=== PATIENT | male | born 1975 | race Caucasian/White ===

== ENCOUNTER 2020-06-03 16:38 | Emergency (ER) | payer MEDICARE, OTHER ==
[~2020-06-03] VITALS: Ht 172.7 cm; Wt 52.0 kg
[2020-06-03] MEDS ORDERED: ACETAMINOPHEN 325 MG TABLET PO ONE (17:15)
[2020-06-03] MEDS ORDERED: IV NORMAL SALINE 1,000ML 1,000 ML IV ONE (17:15)
--- NOTE | 2020-06-03 17:28 | RAD ---
EXAM: CHEST ONE VIEW. HISTORY: Fever. COMPARISON: None. FINDINGS: A frontal view of the chest is obtained. There are no confluent infiltrates. There is no pneumothorax or pleural effusion. The heart is not enlarged. There is a chronic healed fracture of the right mid clavicle. IMPRESSION: 1. No confluent infiltrates. Electronically signed by: Ree Mckay MD (06/03/2020 5:25 PM) [id number]
--- NOTE | 2020-06-03 17:50 | PHYS DOC ---
Past History Past Medical History: Constipation, GERD, High Cholesterol, Seizure, Other Additional Past Medical Histor: cerebral palsy, edema, overactive bladder, blindness Past Surgical History: Other Additional Past Surgical Histo: foot surgeries Alcohol Use: None General Adult EDM: Chief Complaint: FEVER HPI: HPI: Patient is a 44-year-old AA male, accompanied by his caregiver, who presents to the emergency room with complaints of a fever and decreased appetite since yesterday. Patient's primary care doctor called prior to patient arrival and reported patient was tachycardic in their office. Caregiver that is with the patient reports that the patient has not had any Tylenol or ibuprofen since last night. Patient denies any complaints of abdominal pain, cough, shortness of breath, dysuria, body aches, fatigue, nausea, vomiting, diarrhea, or headache. He denies any pain at this time. Review of Systems: Review of Systems: Constitutional: Denies fever or chills Eyes: Denies change in visual acuity HENT: Denies nasal congestion or sore throat Respiratory: Denies cough or shortness of breath Cardiovascular: Denies chest pain or edema GI: Denies abdominal pain, nausea, vomiting, bloody stools or diarrhea : Denies dysuria Musculoskeletal: Denies back pain or joint pain Integument: Denies rash Neurologic: Denies headache, focal weakness or sensory changes Endocrine: Denies polyuria or polydipsia Lymphatic: Denies swollen glands Psychiatric: Denies depression or anxiety Current Medications: Current Meds: Current Medications Medications (Trade) Dose Ordered [facility] Start Time Stop Time Status Last Admin Dose Admin Acetaminophen (Tylenol) 1,000 mg 1X ONCE 06/03/20 17:15 06/03/20 17:16 UNV Sodium Chloride 1,000 ml @ 1,000 mls/hr 1X ONCE 06/03/20 17:15 06/03/20 18:14 UNV Physical Exam: PE: Constitutional: Well developed, well nourished, no acute distress, non-toxic appearance. [] HENT: Normocephalic, atraumatic, bilateral external ears normal, nose normal. [] Eyes: Blind, no discharge. [] Neck: Normal range of motion, no stridor. [] Cardiovascular:Heart rate regular tachycardic rhythm, no murmur Lungs & Thorax: Respirations even and unlabored, no retractions, no respiratory distress, clear in upper lobes, diminished in lower lobes bilaterally Abdomen: soft, no tenderness Skin: Hot, dry, no erythema, no rash. [] Extremities: No cyanosis, no edema. [] Neurologic: Alert and oriented X 3, no focal deficits noted. [] Psychologic: Affect normal, judgement normal, mood normal. [] Current Patient Data: Vital Signs: Vital Signs Date Time Temp Pulse Resp B/P (MAP) Pulse Ox O2 Delivery O2 Flow Rate FiO2 06/03/20 17:00 100.7 138 22 138/95 (109) 96 Room Air EKG: EKG: [] Radiology/Procedures: Radiology/Procedures: PROCEDURE: CHEST AP ONLY EXAM: CHEST ONE VIEW. HISTORY: Fever. COMPARISON: None. FINDINGS: A frontal view of the chest is obtained. There are no confluent infiltrates. There is no pneumothorax or pleural effusion. The heart is not enlarged. There is a chronic healed fracture of the right mid clavicle. IMPRESSION: 1. No confluent infiltrates. [] Heart Score: Risk Factors: Risk Factors: DM, Current or recent (<one month) smoker, HTN, HLP, family history of CAD, obesity. Risk Scores: Score 0 - 3: 2.5% MACE over next 6 weeks - Discharge Home Score 4 - 6: 20.3% MACE over next 6 weeks - Admit for Clinical Observation Score 7 - 10: 72.7% MACE over next 6 weeks - Early Invasive Strategies Course & Med Decision Making: Course & Med Decision Making Pertinent Labs and Imaging studies reviewed. (See chart for details) [] Dragon Disclaimer: Dragon Disclaimer: This electronic medical record was generated, in whole or in part, using a voice recognition dictation system. Departure Departure: Impression: Primary Impression: Person under investigation for COVID-19 Additional Impressions: UTI (urinary tract infection) Qualified Codes: N39.0 - Urinary tract infection, site not specified Fever Qualified Codes: R50.9 - Fever, unspecified Disposition: 01 DC HOME SELF CARE/HOMELESS Condition: STABLE Referrals: CATHERINE HURTADO MD (PCP) Patient Instructions: Fever, Adult, [id number], Urinary Tract Infection, [id number] Additional Instructions: Fill prescription(s) and use as directed. Alternate Tylenol and ibuprofen as needed for fever. Avoid bladder irritants such as caffeine, carbonation, and spicy foods. Increase clear fluids. Follow up with your primary care doctor if symptoms persist, return to the ER if symptoms worsen. You have been tested for or diagnosed with COVID-19. It is an infection caused by a new type of coronavirus. COVID-19 will cause cold-like or mild flu symptoms in most. It can cause more severe symptoms like problems breathing in some. There is no treatment for COVID-19. The body will clear the infection over time. Self-care will help to ease discomfort. Steps to Take: Self-Care Rest as needed. Healthy habits may help you feel better. Steps include: Choose healthy foods including fruits and vegetables. Drink water throughout the day. Get plenty of sleep each night. If you smoke, try to quit. It may ease breathing. Avoid alcohol. Keep Others Healthy The virus can spread to others. Droplets are released every time you sneeze or cough. The droplets can get into the mouth, nose, or eyes of people near you and lead to infection. To lower the chances of spreading COVID-19 to others: Stay at home until your doctor has said it is safe to leave. If you tested positive this will mean staying isolated until both of the following are true: At least 7 days have passed since the start of illness. You are free of fever for at least 72 hours without the use of medicine. During this time: - Avoid public areas, events, or transportation. Do not return to work or school until your doctor has said it is safe to do so. - Call ahead if you need to go to a medical center. Let them know you may have COVID-19. It will help them guide you where to go. They may also ask you to wear a facemask when you come to the office. - If you call for emergency medical services, let them know you may have COVID- 19. While at home: - Try to avoid close contact with others. Stay about 6 feet away. - If possible, spend most of your time in a separate room from others. - Use a face mask if you will be in close contact with others such as sharing a room or vehicle. - Have someone wipe down common surfaces in the home. Use household oil well fishing tool operator every day on areas like doorknobs, counters, or sinks. - Cough or sneeze into a tissue. Throw the tissue away right after use. If a tissue is not available, cough or sneeze into your elbow. - Wash your hands often. Wash them after sneezing or coughing. Use soap and water and wash for at least 20 seconds. Alcohol based hand power cleaner operator can be used if soap and water is not available. - Do not prepare food for others. Avoid sharing personal items like forks, spoons, or toothbrushes. - Avoid close contact with pets while you are sick. There is no evidence of the virus passing to pets. This is a safety step until more is known about this virus. Isolation can be frustrating. Social interaction can help. Keep in touch with friends and family through phone and tech options. You can still interact with others in your home, just keep a safe distance of about 6 feet. Follow-up: Your doctors office will check in with you to see if there are any changes in your health. You may be asked to keep track of symptoms to share with them. They will also let you know when you are clear to be in public again. Problems to Look Out For: Contact your doctor if your recovery is not going as you expect. Get emergency care if you have problems such as: - Trouble breathing - Nonstop chest pain or pressure - Changes in awareness, confusion, or problems waking - Lips or face have bluish color - Worsening of symptoms If you think you have an emergency, call for emergency medical services right away. As taken from [facility] Scripts Ciprofloxacin Hcl (CIPRO) 500 Mg Tablet 500 MG PO BID for uti for 3 Days, #6 TAB 0 Refills Prov: THANIA JOY APRN 06/03/20 THANIA JOY APRN Jun 03, 2020 17:49
[2020-06-03 18:44] LABS: BASO # 0.1 x10^3/uL (0.0-0.2); BASO % 0 % (0-3); EOS % 0 % (0-3); HEMATOCRIT 44.7 % (39.0-53.0); HEMOGLOBIN 14.5 g/dL (13.0-17.5); LYMPH # 1.2 x10^3/uL (1.0-4.8); LYMPH % 7 % (24-48); MEAN CORPUSCULAR HEMOGLOBIN 27 pg (25-35); MEAN CORPUSCULAR HGB CONC 33 g/dL (31-37); MEAN CORPUSCULAR VOLUME 82 fL (79-100); MONO # 2.1 x10^3/uL (0.0-1.1); MONO % 12 % (0-9); NEUT # 14.6 x10^3uL (1.8-7.7); NEUT % 81 % (31-73); PLATELET COUNT 186 x10^3/uL (140-400); RED BLOOD COUNT 5.48 x10^6/uL (4.30-5.70); RED CELL DISTRIBUTION WIDTH 14.3 % (11.5-14.5)
[2020-06-03 18:45] LABS: CALCIUM 9.1 mg/dL (8.5-10.1); CREATININE 1.1 mg/dL (0.7-1.3); GFR 72.7; POTASSIUM 3.9 mmol/L (3.5-5.1)
[2020-06-03 18:51] LABS: ALBUMIN 3.6 g/dL (3.4-5.0); ALBUMIN/GLOBULIN RATIO 0.8 (1.0-1.7); TOTAL PROTEIN 8.2 g/dL (6.4-8.2)
[2020-06-03] MEDS ORDERED: ACETAMINOPHEN 500 MG TABLET PO ONE (19:00)
[2020-06-03 19:09] LABS: % BANDS 5 % (0-9); % LYMPHS 9 % (24-48); % MONOS 8 % (0-10); % SEGS 78 % (35-66)
[2020-06-03 19:10] LABS: PLT ESTIMATE ADEQUATE (ADEQUATE)
[2020-06-03 20:02] LABS: BILIRUBIN,URINE NEG (NEG); CLARITY,URINE CLEAR; COLOR,URINE STRAW; GLUCOSE,URINE NEG (NEG)
[2020-06-03 20:03] LABS: NITRITE,URINE NEG (NEG); UROBILINOGEN,URINE 0.2 mg/dL (0.2 mg/dL)
[2020-06-03 20:14] LABS: BACTERIA,URINE MOD /HPF (0-FEW); SQUAMOUS EPITHELIAL CELL,UR FEW /LPF
[2020-06-03] MEDS ORDERED: CIPR500T94 PO (20:26)
[2020-06-03] MEDS ORDERED: cefTRIAXone SODIUM 1 GM VIAL ONE (20:31)
[2020-06-03] MEDS ORDERED: IV NORMAL SALINE 50ML 50 ML ONE (20:31)
[2020-06-03] MEDS ORDERED: IBUPROFEN 600 MG TABLET. PO ONE (20:45)
[2020-06-03 21:17] VITALS: BP 135/92
== END 2020-06-03 21:17 | disposition home or self-care (01) ==
LOC: ER 16:38
DX: N39.0 Urinary tract infection, site not specified (principal); R50.9 Fever, unspecified; R00.0 Tachycardia, unspecified; Z20.828 Contact with and (suspected) exposure to other viral communicable diseases; K21.9 Gastro-esophageal reflux disease without esophagitis; E78.00 Pure hypercholesterolemia, unspecified
CPT/HCPCS: 36415; 71045; 80053; 81001; 83605; 83735; 85007; 85025; 87040; 87077; 87086; 96361; 96365; 99285; J0696; J7030; U0003

== ENCOUNTER 2020-11-04 20:03 | Emergency (ER) | payer MEDICARE, OTHER ==
[~2020-11-04] VITALS: Ht 172.7 cm; Wt 65.0 kg
[~2020-11-04 20:03] MED LIST: CIPR500T94 PO
--- NOTE | 2020-11-04 20:35 | PHYS DOC ---
Past History Past Medical History: Constipation, GERD, High Cholesterol, Seizure, Other Additional Past Medical Histor: cerebral palsy, edema, overactive bladder, blindness Past Surgical History: Other Additional Past Surgical Histo: foot surgeries Alcohol Use: None General Adult EDM: Chief Complaint: FEVER HPI: HPI: Patient is a 45-year-old male brought in from nursing facility by caregiver for temperature of 100.2 and left-sided flank pain. He has a history of tract infections but denies any history of kidney infections. Denies any cough, vomiting, diarrhea. Patient has had decreased and darker urine today. States he has been eating and drinking well. Denies any abdominal pain. Has not had any antipyretic medications today. No known sick contacts. Patient states he flank pain is dull and started last night when he was trying to go to bed. Review of Systems: Review of Systems: All other systems within normal limits except for as noted in the HPI Current Medications: Current Meds: Current Medications Medications (Trade) Dose Ordered Sig/Rhea Start Time Stop Time Status Last Admin Dose Admin Fentanyl Citrate (Fentanyl 2ml Vial) 50 mcg 1X ONCE 11/04/20 20:45 11/04/20 20:46 UNV Sodium Chloride 1,000 ml @ 1,000 mls/hr 1X ONCE 11/04/20 20:45 11/04/20 21:44 UNV Allergies: Allergies: Allergies Coded Allergies Type Severity Reaction Last Updated Verified No Known Drug Allergies 06/03/20 No Physical Exam: PE: Constitutional: Well developed, well nourished, no acute distress, non-toxic appearance. [] HENT: Normocephalic, atraumatic, bilateral external ears normal, nose normal. [] Eyes: PERRLA, conjunctiva normal, no discharge. [] Neck: No rigidity, supple, no stridor. [] Cardiovascular: Regular rate and rhythm, brisk cap refill [] Lungs & Thorax: Non labored symmetric respirations, no tachypnea or respiratory distress [] Abdomen: Soft, nondistended. Skin: Warm, dry, no erythema, no rash. [] Back: Unremarkable, bilateral CVA tenderness Extremities: No deformities, range of motion grossly intact, no lower extremity edema [] Neurologic: Alert and oriented X 3, no focal deficits noted. Moving all extremities, generalized muscle spasms secondary cerebral palsy. [] Psychologic: Affect normal, judgement normal, mood normal. [] EKG: EKG: [] Radiology/Procedures: Radiology/Procedures: Single view chest dated 11/04/2020: No comparison available. Clinical Indication: Fever. Findings: Single upright portable exam of the chest was performed. Heart size and mediastinal contours are within normal limits given technique. The lungs are clear without evidence of focal consolidation. Vascular interstitium is within normal limits. Impression:: No acute radiographic abnormality. [] Heart Score: C/O Chest Pain: No Risk Factors: Risk Factors: DM, Current or recent (<one month) smoker, HTN, HLP, family history of CAD, obesity. Risk Scores: Score 0 - 3: 2.5% MACE over next 6 weeks - Discharge Home Score 4 - 6: 20.3% MACE over next 6 weeks - Admit for Clinical Observation Score 7 - 10: 72.7% MACE over next 6 weeks - Early Invasive Strategies Course & Med Decision Making: Course & Med Decision Making Pertinent Labs and Imaging studies reviewed. (See chart for details) Per chart review patient has a history of persistent tachycardia. Given fluids antibiotics in the emergency department. Will send home with pyelonephritis. Lactic acid and stable blood pressure, low-grade fever. We will discussed return precautions and treat as outpatient. [] Dragon Disclaimer: Dragon Disclaimer: This electronic medical record was generated, in whole or in part, using a voice recognition dictation system. Departure Departure: Impression: Primary Impression: Pyelonephritis Disposition: 01 DC HOME SELF CARE/HOMELESS Condition: STABLE Referrals: CATHERINE HURTADO MD (PCP) Patient Instructions: Pyelonephritis, Adult Additional Instructions: Return to emergency department for uncontrollable pain, fevers, or vomiting. Follow-up with your primary care provider after quest antibiotics to ensure resolution of urinary tract infection Scripts Cefpodoxime Proxetil (CEFPODOXIME PROXETIL) 200 Mg Tablet 1 TAB PO BID for antibiotic for 10 Days, #20 TAB Prov: CARLTON JACOME MD 11/04/20 CARLTON JACOME MD Nov 04, 2020 20:35
[2020-11-04] MEDS ORDERED: IV NORMAL SALINE 1,000ML 1,000 ML IV ONE ×2 (20:45→22:00)
[2020-11-04 21:09] LABS: BASO # 0.1 x10^3/uL (0.0-0.2); BASO % 0 % (0-3); EOS % 0 % (0-3); HEMOGLOBIN 14.3 g/dL (13.0-17.5); LYMPH # 1.7 x10^3/uL (1.0-4.8); LYMPH % 10 % (24-48); MEAN CORPUSCULAR HEMOGLOBIN 27 pg (25-35); MEAN CORPUSCULAR HGB CONC 32 g/dL (31-37); MEAN CORPUSCULAR VOLUME 82 fL (79-100); MONO # 2.2 x10^3/uL (0.0-1.1); MONO % 13 % (0-9); NEUT # 13.6 x10^3uL (1.8-7.7); NEUT % 77 % (31-73); PLATELET COUNT 173 x10^3/uL (140-400); RED BLOOD COUNT 5.38 x10^6/uL (4.30-5.70); RED CELL DISTRIBUTION WIDTH 14.3 % (11.5-14.5); WHITE BLOOD COUNT 17.7 x10^3/uL (4.0-11.0)
--- NOTE | 2020-11-04 21:10 | RAD ---
Single view chest dated 11/04/2020: No comparison available. Clinical Indication: Fever. Findings: Single upright portable exam of the chest was performed. Heart size and mediastinal contours are with in normal limits given technique. The lungs are clear without evidence of focal consolidation. Vascul ar interstitium is within normal limits. Impression:: No acute radiographic abnormality. Electronically signed by: Cristian Mejia MD (11/04/2020 9:08 PM) KANE
[2020-11-04 21:29] LABS: BILIRUBIN,URINE NEG (NEG); CLARITY,URINE TURBID; COLOR,URINE YELLOW; GLUCOSE,URINE NEG (NEG)
[2020-11-04 21:30] LABS: CALCIUM 9.1 mg/dL (8.5-10.1); CREATININE 1.2 mg/dL (0.7-1.3); GFR 65.5; POTASSIUM 3.8 mmol/L (3.5-5.1)
[2020-11-04 21:30] LABS: BACTERIA,URINE MANY /HPF (0-FEW); NITRITE,URINE POS (NEG); RBC,URINE OCC /HPF (0-2); WBC,URINE >40 /HPF (0-4)
[2020-11-04 21:35] LABS: ALBUMIN 3.9 g/dL (3.4-5.0); TOTAL PROTEIN 7.9 g/dL (6.4-8.2)
[2020-11-04 21:40] LABS: % BANDS 6 % (0-9); % LYMPHS 13 % (24-48); % MONOS 12 % (0-10); % SEGS 69 % (35-66)
[2020-11-04 21:41] LABS: PLT ESTIMATE ADEQUATE (ADEQUATE)
[2020-11-04] MEDS ORDERED: CEFP200T PO (21:56)
[2020-11-04] MEDS ORDERED: ACETAMINOPHEN 500 MG TABLET PO ONE (22:00)
[2020-11-04] MEDS ORDERED: IV NORMAL SALINE 50ML 50 ML ONE (22:28)
[2020-11-04] MEDS ORDERED: cefTRIAXone SODIUM 1 GM VIAL ONE (22:28)
[2020-11-04 23:05] VITALS: BP 146/88
== END 2020-11-04 23:05 | disposition home or self-care (01) ==
LOC: ER 20:03
DX: N12 Tubulo-interstitial nephritis, not specified as acute or chronic (principal); K21.9 Gastro-esophageal reflux disease without esophagitis; E78.00 Pure hypercholesterolemia, unspecified
CPT/HCPCS: 36415; 71045; 80053; 81001; 83605; 83690; 83880; 84484; 85007; 85025; 87040; 87086; 96361; 96365; 96375; 99284; J0696; J3010; J7030; 87077; 87186; 99285-25

== ENCOUNTER 2021-09-26 12:37 | Emergency (ER) | payer MEDICARE, OTHER ==
[~2021-09-26] VITALS: Ht 172.7 cm; Wt 65.0 kg
[~2021-09-26 12:37] MED LIST changes: +CEFP200T PO
[2021-09-26] MEDS ORDERED: ACETAMINOPHEN 500 MG TABLET PO ONE (13:00)
[2021-09-26] MEDS ORDERED: IV NORMAL SALINE 1,000ML 1,000 ML IV SCH (13:00)
--- NOTE | 2021-09-26 13:06 | PHYS DOC ---
Past History Past Medical History: Constipation, GERD, High Cholesterol, Seizure, Other Additional Past Medical Histor: cerebral palsy, edema, overactive bladder, blindness (TANIA CARDONA APRN) Past Surgical History: Other Additional Past Surgical Histo: foot surgeries (TANIA CARDONA APRN) Alcohol Use: None (TANIA CARDONA APRN) General Adult EDM: Chief Complaint: FEVER HPI: HPI: Patient is a 46-year-old male who presents to the emergency department for bilateral back pain and fevers. Patient was seen at [facility] for the symptoms and was sent to the emergency department for tachycardia, hypertension and fever. Patient had a negative rapid Covid test at [facility]. Patient believes that he is experiencing a urinary tract infection as he usually experiences the symptoms. Patient reports chronic urinary tract infections. He has a history of overactive bladder and incontinence, cerebral palsy, seizures, high cholesterol. Patient uses a condom catheter. Patient is wheelchair-bound. Patient reports his last urinary tract infection was several months ago was last time he was on an antibiotic. Patient rates his pain 8 out of 10. He denies cough, shortness of breath, nausea, vomiting, abdominal pain, chest pain, dysuria, hematuria. (TANIA CARDONA APRN) Review of Systems: Review of Systems: Constitutional: negative unless reported in HPI Eyes: negative unless reported in HPI HENT: negative unless reported in HPI Respiratory: negative unless reported in HPI Cardiovascular: negative unless reported in HPI GI: negative unless reported in HPI : negative unless reported in HPI Musculoskeletal: negative unless reported in HPI Integument: negative unless reported in HPI Neurologic: negative unless reported in HPI Endocrine: negative unless reported in HPI Lymphatic: negative unless reported in HPI Psychiatric: negative unless reported in HPI (TANIA CARDONA APRN) Current Medications: Current Meds: Current Medications Medications (Trade) Dose Ordered Sig/Rhea Start Time Stop Time Status Last Admin Dose Admin Acetaminophen (Tylenol) 1,000 mg 1X ONCE 09/26/21 13:00 09/26/21 13:01 UNV Sodium Chloride 1,000 ml @ 1,000 mls/hr Q1H 09/26/21 13:00 09/26/21 13:59 UNV (TANIA CARDONA APRN) Allergies: Allergies: Allergies Coded Allergies Type Severity Reaction Last Updated Verified No Known Drug Allergies 06/03/20 No (BRENDAN,TANIA L DRAPERY SEWER HAND) Physical Exam: PE: Constitutional: Well developed, well nourished, no acute distress, non-toxic appearance. [] HENT: Normocephalic, atraumatic, bilateral external ears normal, oropharynx moist, no oral exudates, nose normal. [] Eyes: PERRL, EOMI, conjunctiva normal, no discharge. [] Neck: Normal range of motion, no stridor Cardiovascular:Heart rate tachycardic rhythm, no murmur [] Lungs & Thorax: Bilateral breath sounds clear to auscultation [] Abdomen: Bowel sounds normal, soft, no tenderness, no masses, no pulsatile masses. [] Skin: Warm, dry, no erythema, no rash. [] Back: No tenderness, bilateral CVA tenderness Extremities: No tenderness, no cyanosis, no clubbing, no edema, flaccid lower extremities and wheelchair bound. [] Neurologic: Alert and oriented X 3, no focal deficits noted. [] Psychologic: Affect normal, judgement normal, mood normal. [] (TANIA CARDONA DRAPERY SEWER HAND) Current Patient Data: Labs: Laboratory Tests Test 09/26/21 12:55 09/26/21 13:10 09/26/21 14:00 White Blood Count 15.4 x10^3/uL Red Blood Count 5.45 x10^6/uL Hemoglobin 14.8 g/dL Hematocrit 44.5 % Mean Corpuscular Volume 82 fL Mean Corpuscular Hemoglobin 27 pg Mean Corpuscular Hemoglobin Concent 33 g/dL Red Cell Distribution Width 14.1 % Platelet Count 171 x10^3/uL Neutrophils (%) (Auto) 87 % Lymphocytes (%) (Auto) 4 % Monocytes (%) (Auto) 9 % Eosinophils (%) (Auto) 0 % Basophils (%) (Auto) 0 % Neutrophils # (Auto) 13.5 x10^3uL Lymphocytes # (Auto) 0.6 x10^3/uL Monocytes # (Auto) 1.3 x10^3/uL Eosinophils # (Auto) 0.0 x10^3/uL Basophils # (Auto) 0.0 x10^3/uL Segmented Neutrophils % 80 % Band Neutrophils % 5 % Lymphocytes % 10 % Monocytes % 5 % Platelet Estimate Adequate Sodium Level 134 mmol/L Potassium Level 3.8 mmol/L Chloride Level 96 mmol/L Carbon Dioxide Level 20 mmol/L Anion Gap 18 Blood Urea Nitrogen 13 mg/dL Creatinine 1.0 mg/dL Estimated GFR (Cockcroft-Gault) 80.4 BUN/Creatinine Ratio 13 Glucose Level 95 mg/dL Lactic Acid Level 1.5 mmol/L Calcium Level 8.8 mg/dL Total Bilirubin 1.2 mg/dL Aspartate Amino Transf (AST/SGOT) 36 U/L Alanine Aminotransferase (ALT/SGPT) 43 U/L Alkaline Phosphatase 92 U/L Troponin I High Sensitivity 7 ng/L Total Protein 7.9 g/dL Albumin 3.9 g/dL Albumin/Globulin Ratio 1.0 Influenza Type A (Rapid) Negative Influenza Type B (Rapid) Negative SARS-CoV-2 Antigen (Rapid) Negative Urine Collection Type Clean catch Urine Color Yellow Urine Clarity Hazy Urine pH 6.0 Urine Specific [place]er 1.010 Urine Protein Trace Urine Glucose (UA) Neg mg/dL Urine Ketones (Stick) 80 mg/dL Urine Blood Trace Urine Nitrite Pos Urine Bilirubin Neg Urine Urobilinogen Dipstick 0.2 mg/dL Urine Leukocyte Esterase Neg Urine RBC 1-2 /HPF Urine WBC >40 /HPF Urine Squamous Epithelial Cells Few /LPF Urine Bacteria Few /HPF Current Medications Medications (Trade) Dose Ordered Sig/Rhea Route PRN Reason Start Time Stop Time Status Last Admin Dose Admin Sodium Chloride 1,000 ml @ 1,000 mls/hr Q1H IV 09/26/21 13:00 09/26/21 13:59 DC 09/26/21 13:44 Acetaminophen (Tylenol) 1,000 mg 1X ONCE PO 09/26/21 13:00 09/26/21 13:01 DC 09/26/21 13:44 Sodium Chloride 1,000 ml @ 1,000 mls/hr 1X ONCE IV 09/26/21 14:45 09/26/21 15:44 (TANIA CRADONA APRN) EKG: EKG: EKG performed by ER staff at 1312 shows sinus tachycardia with a rate of 142, QTC of 413, no STEMI read by Dr. Fan at 315. (TANIA CARDONA APRN) Radiology/Procedures: Radiology/Procedures: []PROCEDURE: PORTABLE CHEST 1V EXAM: CHEST ONE VIEW. HISTORY: Tachycardia. COMPARISON: 11/04/2020. FINDINGS: A frontal view of the chest is obtained. There are no confluent infiltrates. There is no pneumothorax or pleural effusion. The heart is not enlarged. There is a moderate hiatal hernia. A chronic right clavicular fracture is noted. IMPRESSION: 1. Moderate hiatal hernia. Electronically signed by: Ree Mckay MD (09/26/2021 2:01 PM) [id number] DICTATED AND SIGNED BY: ARIADNE MCKAY MD DATE: 09/26/21 1400 CC: RADHA FAN DO; CATHERINE HURTADO MD; TANIA CARDONA APRN ~MTH0 0 (TANIA CARDONA APRN) Heart Score: C/O Chest Pain: No Risk Factors: Risk Factors: DM, Current or recent (<one month) smoker, HTN, HLP, family history of CAD, obesity. Risk Scores: Score 0 - 3: 2.5% MACE over next 6 weeks - Discharge Home Score 4 - 6: 20.3% MACE over next 6 weeks - Admit for Clinical Observation Score 7 - 10: 72.7% MACE over next 6 weeks - Early Invasive Strategies (TANIA CARDONA APRN) Course & Med Decision Making: Course & Med Decision Making Pertinent Labs and Imaging studies reviewed. (See chart for details) Patient presents to the emergency department today for bilateral flank pain with fevers. Patient states that this feels like the symptoms he typically experiences with his urinary tract infections. Patient has a history of overactive bladder, urinary incontinence with a condom catheter and chronic urinary tract infections. Patient does have a fever in the emergency department of 102.6 and he is tachycardic with a heart rate of 150. There is concern for sepsis with this patient. Work-up in the emergency department consisted of blood work including troponin, lactic acid, blood cultures, urinalysis and a chest x- ray. Patient treated with IV fluids. CXR shows moderate hiatal hernia but no infliltrates. Leukocytosis noted with a WBC of 15.4, no lactic acidosis, no elevation in troponin, bilirubin 1.2, negative flu and covid 19. UA shows trace blood, positive nitrites, >40wbc, few bacteria, no leukocytes. Following treatment in the ER with IV fluids, patients heart rate is 139bpm. I discussed patients case with Dr. Rangel and my concern for the need for IV antibiotics to treat patients UTI and also my concern about patients tachycardia. Dr. Rangel advised treating the patient with another bag of IV fluids in the ER and discharging the patient with Levaqin 750mg PO daily x7days. He stated that if the patient does not feel better after 24 hours, the patients care takers at the nursing home should call the hospital and he will direct admit the patient. We discussed this with the patient's caretakers and they report that patient always has to be admitted for IV antibiotics for his chronic urinary tract infections. I agree that patient does require admission for IV antibiotics due to his complicated urinary tract infection. I contacted the hospitalist at [facility] seeking admission. I discussed patient's case with Dr. Sanchez who agreed to accept the patient under his services fo complicated urinary tract infection. IV antibiotics ordered. Patient to be transferred to [facility] via EMS. [id number]. (TANIA CARDONA APRN) Course & Med Decision Making I was the Attending physician on the above date of service of this patient. I reviewed case with midlevel practitioner and agreed to need for admission for septic patient with complicated UTI. Hospitalist [facility] refused transfer; as such, I recommended transfer to [facility] for admission for continued IV antibiotics and medical management for high risk patient Critical Care Time This patient required critical care. Due to the fact that the patient required a significant amount of one on one physician - patient contact time, ordering and review of studies, arranging urgent treatment with development of a management plan, evaluation of patients response to treatment with frequent reassessments, and discussions with other providers this patient required 30 minutes of critical care time. Critical care time was indicated due to the inherent i nstability and/or potential for instability in this patient. The critical care time that is allocated to this patient is above and beyond any time spent on any other billable procedures performed on this patient. Electronically signed, Radha Fan DO (RADHA FAN DO) Larry Disclaimer: Larry Disclaimer: This electronic medical record was generated, in whole or in part, using a voice recognition dictation system. (TANIA CARDONA APRN) Departure Departure: Impression: Primary Impression: Complicated UTI (urinary tract infection) Disposition: 02 SHORT TERM HOSPITAL Condition: STABLE Referrals: CATHERINE HURTADO MD (PCP) TANIA CARDONA APRN Sep 26, 2021 13:06 RADHA FAN DO Sep 27, 2021 06:00
--- NOTE | 2021-09-26 13:21 | EKG ---
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
[2021-09-26 13:29] LABS: BASO % 0 % (0-3); EOS % 0 % (0-3); HEMATOCRIT 44.5 % (39.0-53.0); HEMOGLOBIN 14.8 g/dL (13.0-17.5); LYMPH # 0.6 x10^3/uL (1.0-4.8); LYMPH % 4 % (24-48); MEAN CORPUSCULAR HEMOGLOBIN 27 pg (25-35); MEAN CORPUSCULAR HGB CONC 33 g/dL (31-37); MEAN CORPUSCULAR VOLUME 82 fL (79-100); MONO # 1.3 x10^3/uL (0.0-1.1); MONO % 9 % (0-9); NEUT # 13.5 x10^3uL (1.8-7.7); NEUT % 87 % (31-73); PLATELET COUNT 171 x10^3/uL (140-400); RED BLOOD COUNT 5.45 x10^6/uL (4.30-5.70); RED CELL DISTRIBUTION WIDTH 14.1 % (11.5-14.5); WHITE BLOOD COUNT 15.4 x10^3/uL (4.0-11.0)
[2021-09-26 13:37] LABS: CALCIUM 8.8 mg/dL (8.5-10.1); GFR 80.4; POTASSIUM 3.8 mmol/L (3.5-5.1)
[2021-09-26 13:43] LABS: ALBUMIN 3.9 g/dL (3.4-5.0); TOTAL BILIRUBIN 1.2 mg/dL (0.2-1.0); TOTAL PROTEIN 7.9 g/dL (6.4-8.2)
[2021-09-26 13:54] LABS: INFLUENZA A PATIENT NEGATIVE (NEGATIVE); INFLUENZA B PATIENT NEGATIVE (NEGATIVE)
--- NOTE | 2021-09-26 14:03 | RAD ---
EXAM: CHEST ONE VIEW. HISTORY: Tachycardia. COMPARISON: 11/04/2020. FINDINGS: A frontal view of the chest is obtained. There are no confluent infiltrates. There is no pneumothorax or pleural effusion. The heart is not en larged. There is a moderate hiatal hernia. A chronic right clavicular fracture is noted. IMPRESSION: 1. Moderate hiatal hernia. Electronically signed by: Ree Mckay MD (09/26/2021 2:01 PM) [id number]
[2021-09-26 14:16] LABS: % BANDS 5 % (0-9); % LYMPHS 10 % (24-48); % MONOS 5 % (0-10); % SEGS 80 % (35-66); PLT ESTIMATE ADEQUATE (ADEQUATE)
[2021-09-26 14:31] LABS: BILIRUBIN,URINE NEG (NEG); CLARITY,URINE HAZY; COLOR,URINE YELLOW; GLUCOSE,URINE NEG (NEG); NITRITE,URINE POS (NEG); UROBILINOGEN,URINE 0.2 mg/dL (0.2 mg/dL)
[2021-09-26 14:32] LABS: BACTERIA,URINE FEW /HPF (0-FEW); SQUAMOUS EPITHELIAL CELL,UR FEW /LPF; WBC,URINE >40 /HPF (0-4)
[2021-09-26] MEDS ORDERED: IV NORMAL SALINE 1,000ML 1,000 ML IV ONE (14:45)
[2021-09-26] MEDS ORDERED: IV NORMAL SALINE 50ML 50 ML ONE (14:59)
[2021-09-26] MEDS ORDERED: cefTRIAXone SODIUM 1 GM VIAL ONE (14:59)
[2021-09-26 17:27] VITALS: BP 128/80
== END 2021-09-26 17:26 | disposition short-term general hospital (02) ==
LOC: ER 12:37
DX: N39.0 Urinary tract infection, site not specified (principal); K21.9 Gastro-esophageal reflux disease without esophagitis; E78.00 Pure hypercholesterolemia, unspecified; Z20.822 Contact with and (suspected) exposure to COVID-19; Z99.3 Dependence on wheelchair
CPT/HCPCS: 36415; 71045; 80053; 81001; 83605; 84484; 85007; 85025; 87040; 87077; 87086; 87186; 87428; 93005; 96361; 96365; 99285; J0696; J7030